=== PATIENT | female | born 2000 | race Caucasian/White ===

== ENCOUNTER 2021-11-25 11:08 | Outpatient (CLI) | payer OTHER, SELFPAY ==
[2021-11-25 13:49] LABS: Chlamydia DNA Amplified* DETECTED (No Detected); GC DNA Amplified* NOT DETECTED (No Detected)
== END 2021-11-25 11:09 | disposition home or self-care (01) ==
LOC: NFLDREF 11:09
PROVIDERS: PCP Physician Assistant Medical; Visit Provider Obstetrics & Gynecology
DX: Z11.3 Encounter for screening for infections with a predominantly sexual mode of transmission (principal); Z30.431 Encounter for routine checking of intrauterine contraceptive device
CPT/HCPCS: 87491; 87591

== ENCOUNTER 2021-11-27 17:47 | Outpatient (CLI) | payer OTHER, SELFPAY ==
[2021-11-27 11:34] LABS: Hepatitis B Surface Antigen* Negative (Negative)
[2021-11-27 11:43] LABS: HIV 1/2/P24 Combo Screen* Negative (Negative)
[2021-11-27 11:51] LABS: Hepatitis C Virus Antibody* Negative (Negative)
[2021-11-28 15:28] LABS: Rapid Plasma Reagin (RPR) Non Reactive (Non Reactive)
== END 2021-11-27 17:48 | disposition home or self-care (01) ==
PROVIDERS: PCP Physician Assistant Medical; Visit Provider Obstetrics & Gynecology
DX: Z11.3 Encounter for screening for infections with a predominantly sexual mode of transmission (principal)
CPT/HCPCS: 86592; 86703; 86803; 87340

== ENCOUNTER 2022-03-24 11:29 | Outpatient (CLI) | payer OTHER, SELFPAY ==
[2022-03-24 15:07] LABS: Chlamydia DNA Amplified* NOT DETECTED (No Detected); GC DNA Amplified* NOT DETECTED (No Detected)
== END 2022-03-24 11:30 | disposition home or self-care (01) ==
LOC: NFLDREF 11:30
PROVIDERS: PCP Physician Assistant Medical; Visit Provider Obstetrics & Gynecology
DX: Z11.3 Encounter for screening for infections with a predominantly sexual mode of transmission (principal)
CPT/HCPCS: 87491; 87591

== ENCOUNTER 2023-02-09 13:40 | Outpatient (CLI) | payer BC, SELFPAY | END 2023-02-09 13:41 | disposition home or self-care (01) | PROVIDERS: PCP Physician Assistant Medical; Visit Provider Obstetrics & Gynecology | DX: Z01.419 Encounter for gynecological examination (general) (routine) without abnormal findings (principal); R63.5 Abnormal weight gain; Z13.6 Encounter for screening for cardiovascular disorders; Z13.1 Encounter for screening for diabetes mellitus; Z11.3 Encounter for screening for infections with a predominantly sexual mode of transmission; Z11.59 Encounter for screening for other viral diseases | CPT/HCPCS: 80061; 82947; 84443; 86592; 86703; 86706; 86803; 87340; 87491; 87591 ==

== ENCOUNTER 2023-10-31 11:40 | Outpatient (CLI) | payer BC, SELFPAY ==
[2023-10-31 20:24] LABS: Clue Cells <20% Clue Cells Seen (None Seen); Trichomonas No Trichomonas Seen (None Seen); Yeast No Yeast Seen (None Seen)
[2023-10-31 20:33] LABS: Chlamydia DNA Amplified* NOT DETECTED (No Detected); GC DNA Amplified* NOT DETECTED (No Detected)
== END 2023-10-31 11:41 | disposition home or self-care (01) ==
PROVIDERS: PCP Physician Assistant Medical; Visit Provider Nurse Practitioner Family
DX: Z11.3 Encounter for screening for infections with a predominantly sexual mode of transmission (principal); R35.0 Frequency of micturition
CPT/HCPCS: 81001; 86592; 86703; 86803; 87086; 87210; 87491; 87529; 87591

== ENCOUNTER 2024-10-31 15:12 | Outpatient (CLI) | payer OTHER, SELFPAY | END 2024-10-31 15:13 | disposition home or self-care (01) | LOC: NFLDUCREF 15:19 | PROVIDERS: PCP Family Medicine | DX: R05.9 Cough, unspecified (principal); Z77.120 Contact with and (suspected) exposure to mold (toxic) | CPT/HCPCS: 86003 ==

== ENCOUNTER 2024-11-19 14:17 | Outpatient (CLI) | payer OTHER, SELFPAY | END 2024-11-19 14:18 | disposition home or self-care (01) | PROVIDERS: PCP Family Medicine; Visit Provider Family Medicine | DX: L65.9 Nonscarring hair loss, unspecified (principal); R63.1 Polydipsia; E66.9 Obesity, unspecified | CPT/HCPCS: 80053; 80061; 84443 ==

== ENCOUNTER 2025-02-25 17:24 | Outpatient (CLI) | payer OTHER, SELFPAY | END 2025-02-25 17:25 | disposition home or self-care (01) | PROVIDERS: PCP Family Medicine; Visit Provider Family Medicine | DX: Z00.00 Encounter for general adult medical examination without abnormal findings (principal); F32.A Depression, unspecified; F41.9 Anxiety disorder, unspecified | CPT/HCPCS: 80053; 82306 ==